=== PATIENT | female | born 1990 | race Caucasian/White ===

== ENCOUNTER 2017-03-25 16:25 | Inpatient (IN) | payer BC, OTHER, SELFPAY ==
[2017-03-25] MEDS ORDERED: Lidocaine 1% 30 ML SDV INJECT PRN (16:38)
[2017-03-25] MEDS ORDERED: Sodium Chloride 0.9% 10 ML Syringe FLUSH PRN (16:38)
[2017-03-25] MEDS ORDERED: Nalbuphine 10 MG/1 ML Vial IVPUSH PRN (16:38)
[2017-03-25] MEDS ORDERED: Methylergonovine 0.2 MG/1 ML Amp IM PRN (16:38)
[2017-03-25] MEDS ORDERED: Oxytocin 10 Units/1 ML SDV IM ONE (16:38)
[2017-03-25] MEDS ORDERED: fentaNYL 100 MCG/2 ML SDV IVPUSH PRN (16:38)
[2017-03-25] MEDS ORDERED: Lactated Ringers 500 ML IV ONE (16:38)
[2017-03-25] MEDS ORDERED: Misoprostol 400 MCG (4 X 100 MCG TAB) RECTAL PRN (16:38)
[2017-03-25] MEDS ORDERED: Carboprost Tromethamine 250 MCG/1 ML Amp IM PRN (16:38)
[2017-03-25] MEDS ORDERED: Ondansetron 4 MG/2 ML SDV IV PRN ×2 (16:38→19:57)
[2017-03-25] MEDS ORDERED: Acetaminophen 325 MG Tab PO PRN (16:38)
[2017-03-25] MEDS ORDERED: Misoprostol 25 MCG (1/4 of 100 MCG) Tab VAG PRN (16:42)
[2017-03-25] MEDS ORDERED: Oxytocin/Normal Saline 30 UNIT/500 ML BAG IV SCH (16:45)
[2017-03-25] MEDS ORDERED: Labetalol 20 MG/4 ML Syringe IV PRN (16:46)
--- NOTE | 2017-03-25 16:55 | PCM.LDHP ---
L&D History of Present Illness - General Date of Service: 03/25/17 Admit Problem/Dx: Patient Status Order with Admit Dx/Problem 03/25/17 16:39 Patient Status [ADT] Routine Admission Diagnosis/Problem Admission Diagnosis/Problem High risk Source of Information: Patient History Limitations: Reports: No Limitations - History of Present Illness Introduction:: 26-year-old at 39w0d presented to L&D as a transfer from the clinic for gestational hypertension. Her BP in the clinic was 160/115 and 150/98. She denies any headaches, vision changes or swelling. Baby has been active. No vaginal bleeding or leaking of fluid. - Related Data Allergies/Adverse Reactions: Allergies Allergy/AdvReac Type Severity Reaction Status Date / Time Penicillins Allergy Hives Verified 03/25/17 16:36 Home Medications: Home Meds PNV95/Ferrous Fumarate/FA [ Tablet] 1 tab PO DAILY 03/25/17 [History] Past Medical History Cardiovascular History: Reports: Hypertension (Was on meds for a while, none for a while) Social & Family History - Family History Cardiac: Reports: CAD (Paternal grandfather) OBGYN: Reports: Other (See Below) (sister with preeclampsia) H&P Review of Systems - Review of Systems: Review Of Systems: See Below General: Reports: No Symptoms HEENT: Reports: No Symptoms Pulmonary: Reports: No Symptoms Cardiovascular: Reports: No Symptoms Gastrointestinal: Reports: No Symptoms Genitourinary: Reports: No Symptoms Musculoskeletal: Reports: No Symptoms Skin: Reports: No Symptoms L&D Exam - Exam Exam: See Below - OB Specific Fundal Height In cm: 39 Movement: Active Heart Tones: Present Heart Tones per Min: 135 (Doppler in clinic) Presentation: Vertex - Damico Score Damico Score Cervix Position: Posterior Damico Score Consistency: Soft Damico Score Effacement: 31-50% Damico Score Dilation: 1-2 cm Damico Score 's Station: -2 Damico Score Total: 5 - Exam General: Alert, Oriented HEENT: Conjunctiva Clear, Posterior Pharynx Clear, Pupils Equal Lungs: Clear to Auscultation, Normal Respiratory Effort Cardiovascular: Regular Rate, Regular Rhythm. No: Systolic Murmur, Diastolic Murmur Genitourinary: Normal external exam Back Exam: Normal Inspection Extremities: No Pedal Edema (Trace to lower extremities bilaterally) Skin: Warm, Dry, Intact - Problem List (1) care in third trimester SNOMED Code(s): 542435756, 04080627, [id number], [id number], [id number] ICD Code: Z34.93 - ENCNTR FOR SUPRVSN OF NORMAL PREG, UNSP, THIRD TRIMESTER Status: Acute Current Visit: Yes (2) Gestational hypertension SNOMED Code(s): 45750783 ICD Code: O13.9 - GESTATIONAL HTN W/O SIGNIFICANT PROTEINURIA, UNSP TRIMESTER Status: Acute Current Visit: Yes Problem List Initiated/Reviewed/Updated: Yes Orders Last 24hrs: Active Orders 24 hr Category Date Time Status Patient Status [ADT] Routine ADT 03/25/17 16:39 Ordered Communication Order [RC] ASDIRECTED Care 03/25/17 16:39 Ordered Communication Order [RC] ASDIRECTED Care 03/25/17 16:42 Ordered Communication Order [RC] ASDIRECTED Care 03/25/17 16:42 Ordered Communication Order [RC] ASDIRECTED Care 03/25/17 16:42 Ordered Communication Order [RC] ASDIRECTED Care 03/25/17 16:42 Ordered Communication Order [RC] ASDIRECTED Care 03/25/17 16:42 Ordered Heart Tones [RC] PER UNIT ROUTINE Care 03/25/17 16:39 Ordered Monitoring [RC] PER UNIT ROUTINE Care 03/25/17 16:42 Ordered Notify Provider Vital Signs OB [RC] ASDIRECTED Care 03/25/17 16:39 Ordered Notify Provider [RC] PRN Care 03/25/17 16:39 Ordered Notify Provider [RC] PRN Care 03/25/17 16:42 Ordered Notify Provider [RC] PRN Care 03/25/17 16:42 Ordered Notify Provider [RC] STAT Care 03/25/17 16:42 Ordered Peripheral IV Care [RC] . DIRECTED Care 03/25/17 16:43 Ordered Pump Management, Intrathecal [RC] ASDIRECTED Care 03/25/17 16:38 Ordered Up ad Alexsandra [RC] ASDIRECTED Care 03/25/17 16:39 Ordered Vaginal Exam [RC] PRN Care 03/25/17 16:42 Ordered Vital Signs [RC] PER UNIT ROUTINE Care 03/25/17 16:39 Ordered Clear Liquid Diet [DIET] Diet 03/25/17 Dinner Ordered ALANINE AMINOTRANSFERASE,ALT [CHEM] Stat Lab 03/25/17 16:41 Ordered ASPARTATE AMNIOTRANSFERASE,AST [CHEM] Stat Lab 03/25/17 16:41 Ordered BLOOD UREA NITROGEN,BUN [CHEM] Stat Lab 03/25/17 16:41 Ordered CBC WITH AUTO DIFF [HEME] Stat Lab 03/25/17 16:41 Ordered LACTATE DEHYDROGENASE,LDH [CHEM] Stat Lab 03/25/17 16:41 Ordered PROTEIN/CREATININE RATIO URINE Stat Lab 03/25/17 16:42 Ordered URIC ACID [CHEM] Stat Lab 03/25/17 16:41 Ordered Acetaminophen [Tylenol] Med 03/25/17 16:38 Ordered 650 mg PO Q4H PRN Carboprost Tromethamine [Hemabate DS] Med 03/25/17 16:38 Ordered 250 mcg IM ASDIRECTED PRN Labetalol [Normodyne] Med 03/25/17 17:30 Ordered 100 mg PO TID Labetalol [Normodyne] Med 03/25/17 16:46 Ordered 20 mg IV Q6HR PRN Lactated Ringers @ 125 MLS/HR(1000ml) Med 03/25/17 16:45 Ordered Lactated Ringers [Ringers, Lactated] 1,000 ml IV ASDIRECTED Lactated Ringers [Ringers, Lactated] 500 ml Med 03/25/17 16:38 Ordered IV .BOLUS Lidocaine 1% [Xylocaine-MPF 1%] Med 03/25/17 16:38 Ordered 10 ml INJECT ASDIRECTED PRN Methylergonovine [Methergine] Med 03/25/17 16:38 Ordered 0.2 mg IM ASDIRECTED PRN Misoprostol [Cytotec] Med 03/25/17 16:42 Ordered 25 mcg VAG Q4H PRN Misoprostol [Cytotec] Med 03/25/17 16:38 Ordered 800 mcg RECTAL ASDIRECTED PRN Nalbuphine [Nubain] Med 03/25/17 16:38 Ordered 10 mg IVPUSH Q3H PRN Ondansetron [Zofran] Med 03/25/17 16:38 Ordered 4 mg IV Q4H PRN Oxytocin 30 Units in NS @ 2 MUNITS/MIN(500ml) Med 03/25/17 16:45 Ordered Oxytocin/Normal Saline [Pitocin in NS 30 UNIT/500 ML] 30 unit in 500 ml IV TITRATE Sodium Chloride 0.9% [Saline Flush] Med 03/25/17 16:38 Ordered 10 ml FLUSH ASDIRECTED PRN fentaNYL [Sublimaze] Med 03/25/17 16:38 Ordered 50 mcg IVPUSH Q1H PRN PIH Panel [OM.PC] Stat Oth 03/25/17 16:41 Ordered Peripheral IV Insertion Adult [OM.PC] Urgent Oth 03/25/17 16:42 Ordered Saline Lock Insert [OM.PC] Routine Oth 03/25/17 16:39 Ordered Resuscitation Status Routine Resus Stat 03/25/17 16:38 Ordered Medication Orders Acetaminophen (Tylenol) 650 mg PO Q4H PRN PRN Reason: Pain (Mild 1-3) and fever Carboprost Tromethamine (Hemabate Ds) 250 mcg IM ASDIRECTED PRN PRN Reason: HEMORRHAGE Fentanyl (Sublimaze) 50 mcg IVPUSH Q1H PRN PRN Reason: Pain (moderate 4-6) Lactated Ringer's (Ringers, Lactated) 500 mls @ 999 mls/hr IV .BOLUS ONE Stop: 03/25/17 17:08 Lactated Ringer's (Ringers, Lactated) 1,000 mls @ 125 mls/hr IV ASDIRECTED VICENTE Oxytocin/Sodium Chloride (Pitocin In Ns 30 Unit/500 Ml) 30 unit in 500 mls @ 2 mls/hr IV TITRATE VICENTE; 2 MUNITS/MIN PRN Reason: Protocol Labetalol HCl (Normodyne) 20 mg IV Q6HR PRN; Protocol PRN Reason: Hypertension Labetalol HCl (Normodyne) 100 mg PO TID VICENTE Lidocaine HCl (Xylocaine-Mpf 1%) 10 ml INJECT ASDIRECTED PRN PRN Reason: Perineal Repair Methylergonovine Maleate (Methergine) 0.2 mg IM ASDIRECTED PRN PRN Reason: Hemorrhage Misoprostol (Cytotec) 800 mcg RECTAL ASDIRECTED PRN PRN Reason: Hemorrhage Misoprostol (Cytotec) 25 mcg VAG Q4H PRN PRN Reason: cervical ripening Stop: 03/26/17 20:43 Nalbuphine HCl (Nubain) 10 mg IVPUSH Q3H PRN PRN Reason: Pain (moderate 4-6) Ondansetron HCl (Zofran) 4 mg IV Q4H PRN PRN Reason: Nausea/Vomiting Sodium Chloride (Saline Flush) 10 ml FLUSH ASDIRECTED PRN PRN Reason: Keep Vein Open Assessment/Plan Comment:: 1. Admit to L&D. Initiate routine intrapartum orders 2. Will obtain PIH labs to assess for preeclampsia. If labs are abnormal, we will need to start magnesium. We will also need to start magnesium if blood pressure remain in the severe range. Labetolol ordered for BP control. 3. Plan for Cytotec induction. Will add pitocin and/or AROM for augmentation when able. 4. Patient advised that we will try for a vaginal delivery but she is at increased risk for cesrean section as her cervix is not very favorable. Patient understands these risks, and all questions were answered. Miguelina Álvarez MD
[2017-03-25] MEDS: Lactated Ringers 1,000 ML IV SCH ×3 (16:56→21:08)
[2017-03-25] MEDS ORDERED: Labetalol 100 MG Tab PO SCH (17:30)
[2017-03-25] MEDS ORDERED: Citric Acid/Sodium Citrate Solution 30 ML Cup PO ONE (17:55)
[2017-03-25] MEDS ORDERED: ceFAZolin 2 GM in Premix Bag 1 BAG IV ONE (17:55)
--- NOTE | 2017-03-25 18:02 | PCM.SN ---
- Free Text/Narrative Note: 03/25/[id number] Called by Junie Woodruff RN to evaluate monitoring prior to induction of labor. heart tracings have been consistently in the 160s-170s with minimal variability most of the time, making it unsafe to proceed with induction. I explained this to the patient, and she agreed to proceed with delivery. Patient voices her understanding and agrees to proceed. The risks of surgery, including but not limited to infection, blood loss and damage to surrounding structures, were reviewed. Consents were signed. Patient was also noted to have proteinuria, giving her a diagnosis of preeclampsia. Will start magnesium after delivery. Patient has received 2 doses of labetalol for hypertension. Will proceed to the OR [facility]. Miguelina Álvarez MD
--- NOTE | 2017-03-25 18:04 | PCM.PRNOTE ---
- Free Text/Narrative Note: Section Operative Report Date of Surgery: 03/25/17 Surgeon: Miguelina Álvarez MD Shoe Folder: Jethro Voss MD Pre-Operative Diagnosis: Pre-elampsia Non-reassuring status Post-Operative Diagnosis: Same Procedure Performed: Primary low transverse section Anesthesia: Spinal EBL: 550 mL IVF: 1800 mL Drains: Barboza catheter with 250 mL of urine output Specimens: None Complications: None apparent Findings: Normal uterus, tubes, and ovaries. Indication and Consent: Upon arrival to the floor for induction for preeclampsia, heart tracing was not reassuring for induction of labor. section was recommended to the patient for wellbeing. The patient understood that the risks of section include, but are not limited to, visceral or vascular injury, infection, blood loss and need for blood transfusion, prolonged hospitalization , and reoperation. The patient stated understanding and desired to proceed. All questions were answered. Procedure in Detail: The patient was taken to the operating room. Barboza catheter and pneumoboots were placed. She was then prepped and draped in routine fashion in dorsal supine position with a left young tilt. Two grams of cefazolin (Ancef) were given for infection prophylaxis. Spinal anesthesia was administered. SROM occured a few minutes prior to surgery. Moderate clear fluid was noted. A Pfannenstiel skin incision was made with a scalpel and carried down to the fascia. The fascia was incised and extended laterally. The rectus musculature was in the midline down to the level of the pubic symphysis. The peritoneum was found to be free of adherent bowel or bladder tissue and entered bluntly. The peritoneal opening was then extended superiorly and inferiorly to the bladder reflection with good visualization of the bladder. The Rito retractor was placed. Brief intraabdominal survey revealed scant, clear peritoneal fluid and thinned-out lower uterine segment. The lower uterine segment was incised with a scalpel. The amniotic sac was ruptured with an Allis clamp and clear fluid was noted. The uterine incision was extended bluntly with lateral and upward traction. The fetus was in vertex position. The head was elevated out of the maternal pelvis with special attention paid to avoid using the uterine incision as a fulcrum. Gentle fundal pressure was applied once the head was brought into the incision. A Kiwi vacuum was used to assist the head out of the uterine incision. The was delivered with minimal difficulty. Bulb suctioning of the 's nose and mouth was performed on the operative field. The cord was clamped and cut in standard fashion, and the infant was handed over to the awaiting nursery staff. IV oxytocin was initiated to facilitate uterine contractions. The placenta was delivered intact with manual message of the uterine fundus along with gentle cord traction. The uterus was then exteriorized. The inside of the uterus was gently wiped with a lap sponge to assure complete removal of remaining products of conception. The uterine incision was closed with 0 - Vicryl suture in a running locked fashion. A second imbricating layer of 0- Vicryl was also placed. The incision was inspected and hemostasis achieved. The ovaries and tubes were visualized and found to be normal. The uterus, tubes, and ovaries were returned to the abdominal cavity. The blood clots and fluid were wiped out of the abdomen and pelvis with moist laparotomy sponges. The uterine incision was re-inspected along with all other incised surfaces and good hemostasis was confirmed. The Rito retractor was removed. The peritoneus was then closed using 2-0 Vicyrl. The fascia was then closed with 2-0 looped PDS suture with care not to include any underlying abdominal contents. The sub-cutaneous layer was reapproximated with plain suture. The skin was closed with 3-0 suture on a Colin needle in a subcuticular fashion. Dressing was applied. Sponge and instrument counts were reported as correct times two. Pt tolerated procedure well and was taken to PACU in stable condition. Miguelina Álvarez MD
[2017-03-25] MEDS ORDERED: Midazolam 1 MG/ML 2 ML SDV ONE (18:13)
[2017-03-25] MEDS ORDERED: Ketorolac 30 MG/ML SDV ONE (18:14)
[2017-03-25] MEDS ORDERED: Ondansetron 4 MG/2 ML SDV ONE (18:14)
[2017-03-25] MEDS ORDERED: Morphine PF 1 MG/ML Amp ONE (18:14)
[2017-03-25] MEDS ORDERED: Oxytocin/Normal Saline 60 UNIT/1,000 ML BAG ONE (18:22)
[2017-03-25] MEDS ORDERED: Naloxone 2 MG/2 ML Syringe IVPUSH PRN (19:57)
[2017-03-25] MEDS ORDERED: Acetaminophen/oxyCODONE 325-5 MG Tab PO PRN (19:57)
[2017-03-25] MEDS ORDERED: ePHEDrine 50 MG/ML SDV IVPUSH PRN (19:57)
[2017-03-25] MEDS ORDERED: Ketorolac 30 MG/ML SDV IVPUSH SCH (20:00)
--- NOTE | 2017-03-25 20:00 | PCM.PREANE ---
Preanesthetic Assessment - Procedure Proposed Procedure: Section - Anesthesia/Transfusion/Family Hx Anesthesia History: No Prior Anesthesia Family History of Anesthesia Reaction: No Transfusion History: No Prior Transfusion(s) Intubation History: Unknown - Review of Systems General: No Symptoms Pulmonary: No Symptoms Cardiovascular: No Symptoms Gastrointestinal: No Symptoms Neurological: No Symptoms Other: Reports: None - Physical Assessment NPO Status Date: 03/25/17 NPO Status Time: 18:00 Pulse: 92 O2 Sat by Pulse Oximetry: 100 Respiratory Rate: 16 Blood Pressure: 166/101 Temperature: 97.6 F Vital Signs: Last Vital Signs Temp 99.1 F 03/25/17 17:05 Pulse 91 03/25/17 18:00 Resp 16 03/25/17 18:00 BP 160/98 H 03/25/17 18:00 Pulse Ox Height: 1.68 m Weight: 109.316 kg ASA Class: 2E Mental Status: Alert & Oriented x3 Airway Class: Mallampati = 2 Dentition: Reports: Normal Dentition ROM/Head Extension: Full Lungs: Clear to Auscultation, Normal Respiratory Effort Cardiovascular: Regular Rate, Regular Rhythm - Lab Values: Laboratory Last Values WBC 12.6 10^3/uL (5.0-10.0) H 03/25/17 16:55 RBC 4.23 10^6/uL (4.2-5.4) 03/25/17 16:55 Hgb 12.2 g/dL (12.0-16.0) 03/25/17 16:55 Hct 36.3 % (37.0-47.0) L 03/25/17 16:55 MCV 85.8 fL (80-100) 03/25/17 16:55 MCH 28.8 pg (27.0-34.0) 03/25/17 16:55 MCHC 33.6 g/dL (33.0-35.0) 03/25/17 16:55 Plt Count 280 10^3/uL (150-450) 03/25/17 16:55 Neut % (Auto) 73.7 % (42.2-75.2) 03/25/17 16:55 Lymph % (Auto) 16.8 % (20.5-50.1) L 03/25/17 16:55 [place] % (Auto) 9.2 % (2-8) H 03/25/17 16:55 Eos % (Auto) 0.2 % (1.0-3.0) L 03/25/17 16:55 Baso % (Auto) 0.1 % (0.0-1.0) 03/25/17 16:55 BUN 16 mg/dL (7-18) 03/25/17 16:55 Creatinine 1.0 mg/dL (0.6-1.3) 03/25/17 16:55 Est Cr Clr Drug Dosing TNP 03/25/17 16:55 Estimated GFR (MDRD) > 60 03/25/17 16:55 Uric Acid 5.6 mg/dL (2.6-7.2) 03/25/17 16:55 AST 18 IU/L (10-42) 03/25/17 16:55 ALT 13 IU/L (10-60) 03/25/17 16:55 Lactate Dehydrogenase 119 IU/L (91-180) 03/25/17 16:55 Urine Color Yellow (YELLOW) 03/25/17 17:10 Urine Appearance Slightly cloudy (CLEAR) 03/25/17 17:10 Urine pH 5.5 (5.0-9.0) 03/25/17 17:10 Ur Specific [place] 1.025 (1.005-1.030) 03/25/17 17:10 Urine Protein 100 (NEGATIVE) H 03/25/17 17:10 Urine Glucose (UA) Negative (NEGATIVE) 03/25/17 17:10 Urine Ketones Negative (NEGATIVE) 03/25/17 17:10 Urine Occult Blood Negative (NEGATIVE) 03/25/17 17:10 Urine Nitrite Negative (NEGATIVE) 03/25/17 17:10 Urine Bilirubin Negative (NEGATIVE) 03/25/17 17:10 Urine Urobilinogen 0.2 mg/dL (0.2-1.0) 03/25/17 17:10 Ur Leukocyte Esterase Negative (NEGATIVE) 03/25/17 17:10 Ur Random Creatinine 212 mg/dL 03/25/17 17:10 U Random Total Protein 68 mg/dL (0.00-9.9) H 03/25/17 17:10 Protein/Creatinin Ratio 0.32 03/25/17 17:10 Blood Type A POSITIVE 03/25/17 16:55 Gel Antibody Screen Negative 03/25/17 16:55 - Allergies Allergies/Adverse Reactions: Allergies Allergy/AdvReac Type Severity Reaction Status Date / Time Penicillins Allergy Hives Verified 03/25/17 16:36 - Blood Blood Available: No Product(s) Available: None - Anesthesia Plan Pre-Op Medication Ordered: None - Acknowledgements Anesthesia Type Planned: Spinal Pt an Appropriate Candidate for the Planned Anesthesia: Yes Alternatives and Risks of Anesthesia Discussed w Pt/Guardian: Yes Pt/Guardian Understands and Agrees with Anesthesia Plan: Yes Additional Comments: R/B of spinal vs general anesthesia is discussed with patient. Plan A is for spinal and Plan B is for General anesthesia patient agreed and signed consent. 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 Smoking Status *Q: Never Smoker Second Hand Smoke Exposure: No Recreational Drug Use History: No - HOME MEDS Home Medications: Home Meds PNV95/Ferrous Fumarate/FA [ Tablet] 1 tab PO DAILY 03/25/17 [History] - CURRENT (IN HOUSE) MEDS Current Meds: Current Medications Acetaminophen (Tylenol) 650 mg PO Q4H PRN PRN Reason: Pain (Mild 1-3) and fever Carboprost Tromethamine (Hemabate Ds) 250 mcg IM ASDIRECTED PRN PRN Reason: HEMORRHAGE Oxytocin/Sodium Chloride (Pitocin In Ns 30 Unit/500 Ml) 30 unit in 500 mls @ 2 mls/hr IV TITRATE VICENTE; 2 MUNITS/MIN PRN Reason: Protocol Last Admin: 03/25/17 19:45 Dose: 2 munits/min, 125 mls/hr Labetalol HCl (Normodyne) 20 mg IV Q6HR PRN; Protocol PRN Reason: Hypertension Last Admin: 03/25/17 17:16 Dose: 20 mg Labetalol HCl (Normodyne) 100 mg PO TID VICENTE Last Admin: 03/25/17 17:15 Dose: 100 mg Methylergonovine Maleate (Methergine) 0.2 mg IM ASDIRECTED PRN PRN Reason: Hemorrhage Misoprostol (Cytotec) 800 mcg RECTAL ASDIRECTED PRN PRN Reason: Hemorrhage Misoprostol (Cytotec) 25 mcg VAG Q4H PRN PRN Reason: cervical ripening Stop: 03/26/17 20:43 Sodium Chloride (Saline Flush) 10 ml FLUSH ASDIRECTED PRN PRN Reason: Keep Vein Open Discontinued Medications Citric Acid/Sodium Citrate (Bicitra Solution) 30 ml PO ONETIME ONE Stop: 03/25/17 17:56 Last Admin: 03/25/17 18:18 Dose: 30 ml Fentanyl (Sublimaze) 50 mcg IVPUSH Q1H PRN PRN Reason: Pain (moderate 4-6) Lactated Ringer's (Ringers, Lactated) 500 mls @ 999 mls/hr IV .BOLUS ONE Stop: 03/25/17 17:08 Lactated Ringer's (Ringers, Lactated) 1,000 mls @ 125 mls/hr IV ASDIRECTED VICENTE Last Admin: 03/25/17 18:19 Dose: 125 mls/hr Cefazolin Sodium/Dextrose 2 gm (/ Premix) 50 mls @ 100 mls/hr IV ONETIME ONE Stop: 03/25/17 18:24 Last Admin: 03/25/17 18:30 Dose: 100 mls/hr Oxytocin/Sodium Chloride (Pitocin In Ns 30 Unit/500 Ml) Confirm Administered Dose 60 unit in 1,000 mls @ as directed .ROUTE .STK-MED ONE Stop: 03/25/17 18:23 Ketorolac Tromethamine (Toradol) Confirm Administered Dose 30 mg .ROUTE .STK- MED ONE Stop: 03/25/17 18:15 Lidocaine HCl (Xylocaine-Mpf 1%) 10 ml INJECT ASDIRECTED PRN PRN Reason: Perineal Repair Midazolam HCl (Versed 1 Mg/Ml) Confirm Administered Dose 2 mg .ROUTE .STK-MED ONE Stop: 03/25/17 18:14 Morphine Sulfate (Duramorph Pf) Confirm Administered Dose 1 mg .ROUTE .STK-MED ONE Stop: 03/25/17 18:15 Nalbuphine HCl (Nubain) 10 mg IVPUSH Q3H PRN PRN Reason: Pain (moderate 4-6) Ondansetron HCl (Zofran) 4 mg IV Q4H PRN PRN Reason: Nausea/Vomiting Ondansetron HCl (Zofran) Confirm Administered Dose 4 mg .ROUTE .STK-MED ONE Stop: 03/25/17 18:15 Oxytocin (Pitocin) 10 unit IM ONETIME ONE Stop: 03/25/17 16:39
--- NOTE | 2017-03-25 20:11 | PCM.DEL ---
L & D Note - General Info Date of Service: 03/25/17 Mother's Due Date: 04/01/17 - Delivery Note Delivery Outcome: Livebirth Infant Delivery Method: Primary Infant Delivery Mode: Vacuum Extraction Presentation: Vertex Nuchal Cord: None Anesthesia Type: Spinal Placenta: Intact, Manual Removal Cord: 3 Vessels Estimated Blood Loss: 550 Resuscitation Needed: No Score 1 min: 9 Score 5 min: 9 Delivery Comments (Free Text/Narrative):: Please see procedure note for details - Patient Data Vitals - Most Recent: Last Vital Signs Temp 36.4 C 03/25/17 20:00 Pulse 92 03/25/17 20:00 Resp 16 03/25/17 20:00 BP 166/101 H 03/25/17 20:00 Pulse Ox 100 03/25/17 20:00 Weight - Most Recent: 109.316 kg I&O - Last 24 Hours: Intake & Output 03/25/17 03/25/17 03/25/17 06:59 14:59 22:59 Intake Total 1000 Balance 1000 Lab Results Last 24 Hours: Laboratory Results - last 24 hr 03/25/17 03/25/17 03/25/17 Range/Units 16:55 16:55 16:55 WBC 12.6 H (5.0-10.0) 10^3/uL RBC 4.23 (4.2-5.4) 10^6/uL Hgb 12.2 (12.0-16.0) g/dL Hct 36.3 L (37.0-47.0) % MCV 85.8 (80-100) fL MCH 28.8 (27.0-34.0) pg MCHC 33.6 (33.0-35.0) g/dL Plt Count 280 (150-450) 10^3/uL Neut % (Auto) 73.7 (42.2-75.2) % Lymph % (Auto) 16.8 L (20.5-50.1) % Leslie % (Auto) 9.2 H (2-8) % Eos % (Auto) 0.2 L (1.0-3.0) % Baso % (Auto) 0.1 (0.0-1.0) % BUN 16 (7-18) mg/dL Creatinine 1.0 (0.6-1.3) mg/dL Est Cr Clr Drug Dosing TNP Estimated GFR (MDRD) > 60 Uric Acid 5.6 (2.6-7.2) mg/dL AST 18 (10-42) IU/L ALT 13 (10-60) IU/L Lactate Dehydrogenase 119 (91-180) IU/L Urine Color (YELLOW) Urine Appearance (CLEAR) Urine pH (5.0-9.0) Ur Specific Harlan (1.005-1.030) Urine Protein (NEGATIVE) Urine Glucose (UA) (NEGATIVE) Urine Ketones (NEGATIVE) Urine Occult Blood (NEGATIVE) Urine Nitrite (NEGATIVE) Urine Bilirubin (NEGATIVE) Urine Urobilinogen (0.2-1.0) mg/dL Ur Leukocyte Esterase (NEGATIVE) Ur Random Creatinine mg/dL U Random Total Protein (0.00-9.9) mg/dL Protein/Creatinin Ratio Blood Type Gel Antibody Screen 03/25/17 03/25/17 03/25/17 Range/Units 16:55 17:10 17:10 WBC (5.0-10.0) 10^3/uL RBC (4.2-5.4) 10^6/uL Hgb (12.0-16.0) g/dL Hct (37.0-47.0) % MCV (80-100) fL MCH (27.0-34.0) pg MCHC (33.0-35.0) g/dL Plt Count (150-450) 10^3/uL Neut % (Auto) (42.2-75.2) % Lymph % (Auto) (20.5-50.1) % Leslie % (Auto) (2-8) % Eos % (Auto) (1.0-3.0) % Baso % (Auto) (0.0-1.0) % BUN (7-18) mg/dL Creatinine (0.6-1.3) mg/dL Est Cr Clr Drug Dosing Estimated GFR (MDRD) Uric Acid (2.6-7.2) mg/dL AST (10-42) IU/L ALT (10-60) IU/L Lactate Dehydrogenase (91-180) IU/L Urine Color Yellow (YELLOW) Urine Appearance Slightly cloudy (CLEAR) Urine pH 5.5 (5.0-9.0) Ur Specific Harlan 1.025 (1.005-1.030) Urine Protein 100 H (NEGATIVE) Urine Glucose (UA) Negative (NEGATIVE) Urine Ketones Negative (NEGATIVE) Urine Occult Blood Negative (NEGATIVE) Urine Nitrite Negative (NEGATIVE) Urine Bilirubin Negative (NEGATIVE) Urine Urobilinogen 0.2 (0.2-1.0) mg/dL Ur Leukocyte Esterase Negative (NEGATIVE) Ur Random Creatinine 212 mg/dL U Random Total Protein 68 H (0.00-9.9) mg/dL Protein/Creatinin Ratio 0.32 Blood Type A POSITIVE Gel Antibody Screen Negative Med Orders - Current: Current Medications Acetaminophen (Tylenol) 650 mg PO Q4H PRN PRN Reason: Pain (Mild 1-3) and fever Carboprost Tromethamine (Hemabate Ds) 250 mcg IM ASDIRECTED PRN PRN Reason: HEMORRHAGE Diphenhydramine HCl (Benadryl) 25 mg IVPUSH Q6H PRN PRN Reason: Itching or Nausea Docusate Sodium (Colace) 100 mg PO Q12H PRN PRN Reason: Constipation Ephedrine Sulfate (Ephedrine Sulfate) 5 mg IVPUSH SEECOMMENT PRN PRN Reason: Other Oxytocin/Sodium Chloride (Pitocin In Ns 30 Unit/500 Ml) 30 unit in 500 mls @ 2 mls/hr IV TITRATE VICENTE; 2 MUNITS/MIN PRN Reason: Protocol Last Admin: 03/25/17 19:45 Dose: 2 munits/min, 125 mls/hr Lactated Ringer's (Ringers, Lactated) 1,000 mls @ 125 mls/hr IV ASDIRECTED VICENTE Magnesium Sulfate 4 gm/ Premix 100 mls @ 300 mls/hr IV .BOLUS ONE Stop: 03/25/17 20:19 Magnesium Sulfate (Magnesium Sulfate 20 Gm In Water 500 Ml) 500 mls @ 50 mls/ hr IV ASDIRECTED VICENTE Ibuprofen (Motrin) 800 mg PO Q8H PRN PRN Reason: mild pain or fever Ketorolac Tromethamine (Toradol) 15 mg IVPUSH Q6H VICENTE Stop: 03/26/17 08:01 Labetalol HCl (Normodyne) 20 mg IV Q6HR PRN; Protocol PRN Reason: Hypertension Last Admin: 03/25/17 17:16 Dose: 20 mg Labetalol HCl (Normodyne) 100 mg PO TID VICENTE Last Admin: 03/25/17 17:15 Dose: 100 mg Methylergonovine Maleate (Methergine) 0.2 mg IM ASDIRECTED PRN PRN Reason: Hemorrhage Misoprostol (Cytotec) 800 mcg RECTAL ASDIRECTED PRN PRN Reason: Hemorrhage Misoprostol (Cytotec) 25 mcg VAG Q4H PRN PRN Reason: cervical ripening Stop: 03/26/17 20:43 Naloxone HCl (Narcan) 0.1 mg IVPUSH SEECOMMENT PRN PRN Reason: Respiratory Depression Ondansetron HCl (Zofran) 4 mg IV Q4H PRN PRN Reason: Nausea/Vomiting Oxycodone/Acetaminophen (Percocet 325-5 Mg) 1 tab PO Q4H PRN PRN Reason: Pain (moderate 4-6) Oxycodone/Acetaminophen (Percocet 325-5 Mg) 2 tab PO Q4H PRN PRN Reason: Pain (moderate 4-6) Simethicone (Simethicone) 80 mg PO Q4H PRN PRN Reason: Gas Sodium Chloride (Saline Flush) 10 ml FLUSH ASDIRECTED PRN PRN Reason: Keep Vein Open Discontinued Medications Citric Acid/Sodium Citrate (Bicitra Solution) 30 ml PO ONETIME ONE Stop: 03/25/17 17:56 Last Admin: 03/25/17 18:18 Dose: 30 ml Fentanyl (Sublimaze) 50 mcg IVPUSH Q1H PRN PRN Reason: Pain (moderate 4-6) Lactated Ringer's (Ringers, Lactated) 500 mls @ 999 mls/hr IV .BOLUS ONE Stop: 03/25/17 17:08 Lactated Ringer's (Ringers, Lactated) 1,000 mls @ 125 mls/hr IV ASDIRECTED [facility] Last Admin: 03/25/17 18:19 Dose: 125 mls/hr Cefazolin Sodium/Dextrose 2 gm (/ Premix) 50 mls @ 100 mls/hr IV ONETIME ONE Stop: 03/25/17 18:24 Last Admin: 03/25/17 18:30 Dose: 100 mls/hr Oxytocin/Sodium Chloride (Pitocin In Ns 30 Unit/500 Ml) Confirm Administered Dose 60 unit in 1,000 mls @ as directed .ROUTE .STK-MED ONE Stop: 03/25/17 18:23 Ketorolac Tromethamine (Toradol) Confirm Administered Dose 30 mg .ROUTE .STK- MED ONE Stop: 03/25/17 18:15 Lidocaine HCl (Xylocaine-Mpf 1%) 10 ml INJECT ASDIRECTED PRN PRN Reason: Perineal Repair Midazolam HCl (Versed 1 Mg/Ml) Confirm Administered Dose 2 mg .ROUTE .STK-MED ONE Stop: 03/25/17 18:14 Morphine Sulfate (Duramorph Pf) Confirm Administered Dose 1 mg .ROUTE .STK-MED ONE Stop: 03/25/17 18:15 Nalbuphine HCl (Nubain) 10 mg IVPUSH Q3H PRN PRN Reason: Pain (moderate 4-6) Ondansetron HCl (Zofran) 4 mg IV Q4H PRN PRN Reason: Nausea/Vomiting Ondansetron HCl (Zofran) Confirm Administered Dose 4 mg .ROUTE .STK-MED ONE Stop: 03/25/17 18:15 Oxytocin (Pitocin) 10 unit IM ONETIME ONE Stop: 03/25/17 16:39 - Problem List & Annotations (1) care in third trimester SNOMED Code(s): 809915181, 86894729, 01631464, 253522827, 765505978 Code(s): Z34.93 - ENCNTR FOR SUPRVSN OF NORMAL PREG, UNSP, THIRD TRIMESTER Status: Acute Current Visit: Yes (2) Preeclampsia SNOMED Code(s): 823095691 Code(s): O14.90 - UNSPECIFIED PRE-ECLAMPSIA, UNSPECIFIED TRIMESTER Status: Acute Current Visit: Yes (3) Status post delivery SNOMED Code(s): 145522072 Code(s): Z98.891 - HISTORY OF UTERINE SCAR FROM PREVIOUS SURGERY Status: Acute Current Visit: Yes - Problem List Review Problem List Initiated/Reviewed/Updated: Yes - My Orders Last 24 Hours: My Active Orders 03/25/17 16:38 Pump Management, Intrathecal [RC] ASDIRECTED Acetaminophen [Tylenol] 650 mg PO Q4H PRN Carboprost Tromethamine [Hemabate DS] 250 mcg IM ASDIRECTED PRN Methylergonovine [Methergine] 0.2 mg IM ASDIRECTED PRN Misoprostol [Cytotec] 800 mcg RECTAL ASDIRECTED PRN Sodium Chloride 0.9% [Saline Flush] 10 ml FLUSH ASDIRECTED PRN Resuscitation Status Routine 03/25/17 16:39 Patient Status [ADT] Routine Heart Tones [RC] PER UNIT ROUTINE Notify Provider Vital Signs OB [RC] ASDIRECTED Notify Provider [RC] PRN Up ad Alexsandra [RC] ASDIRECTED Vital Signs [RC] 00,04,08,12,16,20 Saline Lock Insert [OM.PC] Routine 03/25/17 16:41 PIH Panel [OM.PC] Stat 03/25/17 16:42 Communication Order [RC] ASDIRECTED Communication Order [RC] ASDIRECTED Communication Order [RC] ASDIRECTED Communication Order [RC] ASDIRECTED Notify Provider [RC] PRN Notify Provider [RC] PRN Notify Provider [RC] STAT Vaginal Exam [RC] PRN Misoprostol [Cytotec] 25 mcg VAG Q4H PRN Peripheral IV Insertion Adult [OM.PC] Urgent 03/25/17 16:43 Peripheral IV Care [RC] . DIRECTED 03/25/17 16:45 Oxytocin/Normal Saline [Pitocin in NS 30 UNIT/500 ML] 30 unit in 500 ml IV TITRATE 03/25/17 16:46 Labetalol [Normodyne] 20 mg IV Q6HR PRN 03/25/17 17:30 Labetalol [Normodyne] 100 mg PO TID 03/25/17 17:55 Procedure Site Prep Instruct [RC] ASDIRECTED RT Incentive Spirometry [RC] ASDIRECTED Schedule Procedure [COMM] Per Unit Routine 03/25/17 19:57 Antiembolic Devices [RC] PER UNIT ROUTINE Bedrest [RC] ASDIRECTED Communication Order [RC] PER UNIT ROUTINE Communication Order [RC] PER UNIT ROUTINE Communication Order [RC] Per Unit Routine Intake and Output [RC] Q8H Notify Provider Intake and Out [RC] ASDIRECTED RT Incentive Spirometry [RC] Q2HWA Urinary Catheter Removal [RC] Per Unit Routine Consult to Ip Paralegal [CONS] Routine Acetaminophen/oxyCODONE [Percocet 325-5 MG] 1 tab PO Q4H PRN Acetaminophen/oxyCODONE [Percocet 325-5 MG] 2 tab PO Q4H PRN Docusate Sodium [Colace] 100 mg PO Q12H PRN Ibuprofen [Motrin] 800 mg PO Q8H PRN Naloxone [Narcan] 0.1 mg IVPUSH SEECOMMENT PRN Ondansetron [Zofran] 4 mg IV Q4H PRN Simethicone 80 mg PO Q4H PRN diphenhydrAMINE [Benadryl] 25 mg IVPUSH Q6H PRN ePHEDrine [ePHEDrine Sulfate] 5 mg IVPUSH SEECOMMENT PRN Antiembolic Hose [OM.PC] Per Unit Routine Assess Lochia [WOMSER] Per Unit Routine Assess Uterine Involution [WOMSER] Per Unit Routine Breast Pump [WOMSER] Per Unit Routine Sequential Compression Device [OM.PC] Per Unit Routine 03/25/17 20:00 Oxygen Therapy [RC] PRN Ketorolac [Toradol] 15 mg IVPUSH Q6H Lactated Ringers @ 125 MLS/HR(1000ml) Lactated Ringers [Ringers, Lactated] 1, 000 ml IV ASDIRECTED Magnesium Sulfate/Water [Magnesium Sulfate 20 GM in Water 500 ML] 500 ml IV ASDIRECTED Magnesium Sulfate/Water [Magnesium Sulfate 4 GM in Water 100 ML] 4 gm Premix Bag 1 bag IV .BOLUS Deep Tendon Reflexes [WOMSER] Per Unit Routine Seizure Precautions [OM.PC] Per Unit Routine 03/25/17 20:02 Equipment to Bedside [RC] PRN Notify Provider Status Change [RC] ASDIRECTED 03/25/17 Breakfast Clear Liquid Diet [DIET] Nothing Per Oral Diet [DIET] 03/25/17 Dinner Nothing Per Oral Diet [DIET] 03/25/17 Lunch Nothing Per Oral Diet [DIET] Regular Diet [DIET] 03/26/17 05:00 MAGNESIUM [CHEM] Q8H 03/26/17 08:00 CBC W/O DIFF,HEMOGRAM [HEME] Routine 03/26/17 13:00 MAGNESIUM [CHEM] Q8H 03/26/17 21:00 MAGNESIUM [CHEM] Q8H 03/27/17 05:00 MAGNESIUM [CHEM] Q8H - Assessment Assessment:: 26-year-old, now , status post primary section for preeclampsia and non-reassuring heart tones - Plan Plan:: 1. Initiate routine postoperative cares 2. Initiate magnesium for preeclampsia. Will continue for 24 hours. Check magnesium level every 8 hours after initiation. 3. Labetalol 100 mg TID. Nursing advised to call if BP normal or low. 4. Mother plans to breastfeed 5. Anticipate discharge 03/28/17. Dr. Voss will see tomorrow. I will resume care on 03/27/17 Miguelina Álvarez MD
[2017-03-25] MEDS ORDERED: Calcium Gluconate 10% 1 GM/10 ML SDV IVPUSH ONE ×2 (21:00→21:45)
[2017-03-25] MEDS: Magnesium Sulfate/Water 4 GM in Premix Bag 1 BAG IV ONE (21:08)
[2017-03-25] MEDS: Magnesium Sulfate/Water 20 GM/500 ML BAG IV SCH (21:47)
[2017-03-25] MEDS: Simethicone 80 MG Tab.Chew PO PRN (21:51)
[2017-03-26] MEDS: Ketorolac 30 MG/ML SDV IVPUSH SCH ×3 (01:54→13:53)
[2017-03-26] MEDS: diphenhydrAMINE 50 MG/ML SDV IVPUSH PRN (04:02)
[2017-03-26] MEDS: Magnesium Sulfate/Water 4 GM in Premix Bag 1 BAG IV ONE (07:56)
[2017-03-26] MEDS: Prenatal Multivitamin with Calcium/Folic Acid/Iron Tab PO SCH (07:58)
[2017-03-26] MEDS: Docusate Sodium 100 MG Cap PO PRN (07:58)
[2017-03-26] MEDS: Simethicone 80 MG Tab.Chew PO PRN ×3 (07:58→20:06)
[2017-03-26] MEDS: Magnesium Sulfate/Water 20 GM/500 ML BAG IV SCH ×2 (08:05→17:50)
--- NOTE | 2017-03-26 09:48 | PCM.POSTAN ---
POST ANESTHESIA ASSESSMENT - MENTAL STATUS Mental Status: Alert, Oriented - VITAL SIGNS Pulse Rate: 82 SaO2: 99 Resp Rate: 16 Blood Pressure: 124/72 Temperature: 97.6 F - RESPIRATORY Respiratory Status: Respiratory Rate WNL, Airway Patent, O2 Saturation Stable - CARDIOVASCULAR CV Status: Pulse Rate WNL, Blood Pressure Stable - GASTROINTESTINAL GI Status: No Symptoms - PAIN Pain Score: 1 - POST OP HYDRATION Hydration Status: Adequate & Stable - OBSERVATIONS Free Text/Narrative:: Fully recovered from her spinal anesthesia about to ambulate. Pain, nausea and vomiting free. pleased with her anesthetic plan of care.
--- NOTE | 2017-03-26 12:06 | PN ---
DATE: 03/26/2017 SUBJECTIVE: The patient is doing well today. She denies any headache. She is currently on magnesium sulfate at 2 g/hour. She denies any respiratory depression or any visual symptoms. She has been up, ambulating this morning, but she does admit that she feels somewhat groggy from the magnesium sulfate as we would expect. She has been ambulating with the nurse at her side or with her at her side. She is tolerating regular diet this morning. Her baby also was doing very well this morning. OBJECTIVE: Her blood pressures are in the range of 118/74 and 123/64. Her postoperative hemoglobin this morning is 10.1. She is getting 2 g/hour of magnesium sulfate. She does have good urine output. She remains afebrile. Her serum magnesium level is 4.8 this morning. IMPRESSION: Stable course after section last evening for preeclampsia. Although, her serum Mag level is somewhat below the therapeutic range, we will not increase it because of her slight degree of grogginess and lethargy that she already has at this level. PLAN: We will continue with 2 g/hour of magnesium sulfate at the present time. It should be mentioned that her deep tendon reflexes are 1+/4 bilaterally and there is no ankle clonus. Also, her Homans sign was negative and no calf tenderness. As mentioned above, she will gradually increase her ambulation with or nurse at her side. We will begin iron sulfate 324 mg p.o. b.i.d. with food or meals because of her hemoglobin being 10.1. We will discontinue her magnesium sulfate 24 hours postoperatively or at approximately 1900 hours this evening. [facility] /[id number]
[2017-03-26] MEDS ORDERED: Ibuprofen 800 MG Tab PO PRN (16:00)
[2017-03-26] MEDS: Lactated Ringers 1,000 ML IV SCH (16:18)
[2017-03-26] MEDS: Ferrous Sulfate 325 MG Tab PO SCH (17:30)
[2017-03-26] MEDS: Acetaminophen/oxyCODONE 325-5 MG Tab PO PRN (20:06)
[2017-03-27] MEDS: Acetaminophen/oxyCODONE 325-5 MG Tab PO PRN ×6 (00:03→21:05)
[2017-03-27] MEDS: diphenhydrAMINE 50 MG/ML SDV IVPUSH PRN (00:03)
[2017-03-27] MEDS: Simethicone 80 MG Tab.Chew PO PRN ×3 (03:53→21:03)
[2017-03-27] MEDS: Ibuprofen 800 MG Tab PO PRN ×3 (03:53→20:15)
[2017-03-27] MEDS: Prenatal Multivitamin with Calcium/Folic Acid/Iron Tab PO SCH (08:21)
[2017-03-27] MEDS: Ferrous Sulfate 325 MG Tab PO SCH ×2 (08:21→17:14)
[2017-03-27] MEDS: Docusate Sodium 100 MG Cap PO PRN ×2 (08:21→21:03)
--- NOTE | 2017-03-27 11:33 | PCM.PNPP ---
- General Info Date of Service: 03/27/17 Subjective Update: 26-year-old, now , status post primary section for preeclampsia and non-reassuring heart tones. Magensium was stopped around 1900 yesterday. Patient has been feeling well since. Urine output has been adequate. Pain is well controlled. Blood pressures have been slightly high in with 130s-140s (occasional 150s) systolic and 90s diastolic. No headaches. Tolerating a general diet. Passing gas. No concerns per nursing or patient. Functional Status: Reports: Pain Controlled, Tolerating Diet, Ambulating, Urinating - Review of Systems General: Reports: No Symptoms HEENT: Reports: No Symptoms Pulmonary: Reports: No Symptoms Cardiovascular: Reports: No Symptoms Gastrointestinal: Reports: No Symptoms Genitourinary: Reports: No Symptoms Musculoskeletal: Reports: No Symptoms Skin: Reports: No Symptoms - General Info Date of Service: 03/27/17 - Patient Data Vital Signs - Most Recent: Last Vital Signs Temp 36.6 C 03/27/17 08:00 Pulse 78 03/27/17 08:00 Resp 16 03/27/17 08:00 BP 137/92 H 03/27/17 08:00 Pulse Ox 100 03/27/17 08:00 Weight - Most Recent: 109.316 kg I&O - Last 24 Hours: Intake & Output 03/26/17 03/27/17 03/27/17 22:59 06:59 14:59 Intake Total 3500 Output Total 2250 1550 Balance 1250 -1550 Lab Results - Last 24 Hours: Laboratory Results - last 24 hr 03/26/17 Range/Units 12:55 Magnesium 5.7 H (1.8-2.5) mg/dL Med Orders - Current: Current Medications Acetaminophen (Tylenol) 650 mg PO Q4H PRN PRN Reason: Pain (Mild 1-3) and fever Carboprost Tromethamine (Hemabate Ds) 250 mcg IM ASDIRECTED PRN PRN Reason: HEMORRHAGE Diphenhydramine HCl (Benadryl) 25 mg IVPUSH Q6H PRN PRN Reason: Itching or Nausea Last Admin: 03/27/17 00:03 Dose: 25 mg Docusate Sodium (Colace) 100 mg PO Q12H PRN PRN Reason: Constipation Last Admin: 08/20/17 08:21 Dose: 100 mg Ephedrine Sulfate (Ephedrine Sulfate) 5 mg IVPUSH SEECOMMENT PRN PRN Reason: Other Ferrous Sulfate (Ferrous Sulfate) 325 mg PO BIDMEALS [facility] Last Admin: 03/27/17 08:21 Dose: 325 mg Oxytocin/Sodium Chloride (Pitocin In Ns 30 Unit/500 Ml) 30 unit in 500 mls @ 2 mls/hr IV TITRATE VICENTE; 2 MUNITS/MIN PRN Reason: Protocol Last Admin: 03/25/17 19:45 Dose: 2 munits/min, 125 mls/hr Lactated Ringer's (Ringers, Lactated) 1,000 mls @ 125 mls/hr IV ASDIRECTED VICENTE Last Admin: 03/26/17 16:18 Dose: 50 mls/hr Ibuprofen (Motrin) 800 mg PO Q8H PRN PRN Reason: mild pain or fever Last Admin: 03/27/17 03:53 Dose: 800 mg Labetalol HCl (Normodyne) 20 mg IV Q6HR PRN; Protocol PRN Reason: Hypertension Last Admin: 03/25/17 17:16 Dose: 20 mg Labetalol HCl (Normodyne) 100 mg PO BID [facility] Methylergonovine Maleate (Methergine) 0.2 mg IM ASDIRECTED PRN PRN Reason: Hemorrhage Misoprostol (Cytotec) 800 mcg RECTAL ASDIRECTED PRN PRN Reason: Hemorrhage Naloxone HCl (Narcan) 0.1 mg IVPUSH SEECOMMENT PRN PRN Reason: Respiratory Depression Ondansetron HCl (Zofran) 4 mg IV Q4H PRN PRN Reason: Nausea/Vomiting Oxycodone/Acetaminophen (Percocet 325-5 Mg) 1 tab PO Q4H PRN PRN Reason: Pain (moderate 4-6) Oxycodone/Acetaminophen (Percocet 325-5 Mg) 2 tab PO Q4H PRN PRN Reason: Pain (moderate 4-6) Last Admin: 03/27/17 08:22 Dose: 2 tab Prenat Multivit/Driving School Instructor/Iron/Folic Ac ( Plus Iron) 1 each PO WITHBREAKFAST [facility] Last Admin: 03/27/17 08:21 Dose: 1 each Simethicone (Simethicone) 80 mg PO Q4H PRN PRN Reason: Gas Last Admin: 03/27/17 08:21 Dose: 80 mg Sodium Chloride (Saline Flush) 10 ml FLUSH ASDIRECTED PRN PRN Reason: Keep Vein Open Discontinued Medications Calcium Gluconate (Calcium Gluconate) 1 gm IVPUSH ONETIME ONE Stop: 03/25/17 21:01 Last Admin: 03/27/17 07:21 Dose: Not Given Calcium Gluconate (Calcium Gluconate) 1 gm IVPUSH ONETIME ONE Stop: 03/25/17 21:46 Last Admin: 03/27/17 07:21 Dose: Not Given Citric Acid/Sodium Citrate (Bicitra Solution) 30 ml PO ONETIME ONE Stop: 03/25/17 17:56 Last Admin: 03/25/17 18:18 Dose: 30 ml Fentanyl (Sublimaze) 50 mcg IVPUSH Q1H PRN PRN Reason: Pain (moderate 4-6) Lactated Ringer's (Ringers, Lactated) 500 mls @ 999 mls/hr IV .BOLUS ONE Stop: 03/25/17 17:08 Last Admin: 03/25/17 20:00 Dose: Not Given Lactated Ringer's (Ringers, Lactated) 1,000 mls @ 125 mls/hr IV ASDIRECTED [facility] Last Admin: 03/25/17 18:19 Dose: 125 mls/hr Cefazolin Sodium/Dextrose 2 gm (/ Premix) 50 mls @ 100 mls/hr IV ONETIME ONE Stop: 03/25/17 18:24 Last Admin: 03/25/17 18:30 Dose: 100 mls/hr Oxytocin/Sodium Chloride (Pitocin In Ns 30 Unit/500 Ml) Confirm Administered Dose 60 unit in 1,000 mls @ as directed .ROUTE .STK-MED ONE Stop: 03/25/17 18:23 Magnesium Sulfate 4 gm/ Premix 100 mls @ 300 mls/hr IV .BOLUS ONE Stop: 03/25/17 20:19 Last Infusion: 03/25/17 21:38 Dose: Infused Magnesium Sulfate (Magnesium Sulfate 20 Gm In Water 500 Ml) 20 gm in 500 mls @ 50 mls/hr IV ASDIRECTED [facility] Stop: 03/26/17 19:00 Last Infusion: 03/26/17 19:23 Dose: 0 mls/hr Ibuprofen (Motrin) 800 mg PO Q8H PRN PRN Reason: mild pain or fever Ketorolac Tromethamine (Toradol) Confirm Administered Dose 30 mg .ROUTE .STK- MED ONE Stop: 03/25/17 18:15 Ketorolac Tromethamine (Toradol) 15 mg IVPUSH Q6H [facility] Stop: 03/26/17 08:01 Last Admin: 03/26/17 00:16 Dose: Not Given Ketorolac Tromethamine (Toradol) 15 mg IVPUSH Q6H [facility] Stop: 03/26/17 14:01 Last Admin: 03/26/17 13:53 Dose: 15 mg Labetalol HCl (Normodyne) 100 mg PO TID [facility] Last Admin: 03/25/17 17:15 Dose: 100 mg Lidocaine HCl (Xylocaine-Mpf 1%) 10 ml INJECT ASDIRECTED PRN PRN Reason: Perineal Repair Midazolam HCl (Versed 1 Mg/Ml) Confirm Administered Dose 2 mg .ROUTE .STK-MED ONE Stop: 03/25/17 18:14 Misoprostol (Cytotec) 25 mcg VAG Q4H PRN PRN Reason: cervical ripening Stop: 03/26/17 20:43 Morphine Sulfate (Duramorph Pf) Confirm Administered Dose 1 mg .ROUTE .STK-MED ONE Stop: 03/25/17 18:15 Nalbuphine HCl (Nubain) 10 mg IVPUSH Q3H PRN PRN Reason: Pain (moderate 4-6) Ondansetron HCl (Zofran) 4 mg IV Q4H PRN PRN Reason: Nausea/Vomiting Ondansetron HCl (Zofran) Confirm Administered Dose 4 mg .ROUTE .STK-MED ONE Stop: 03/25/17 18:15 Oxytocin (Pitocin) 10 unit IM ONETIME ONE Stop: 03/25/17 16:39 Last Admin: 03/25/17 22:00 Dose: Not Given - Infant Interaction Disposition, : in Room with Family Infant Interaction: Holding Infant Infant Feeding: Bottle Fed Support Person: - Recovery Exam Fundal Tone: Firm Fundal Level: 3 Fingerbreadths Below Umbilicus Fundal Placement: Midline Lochia Amount: Scant Lochia Color: Rubra/Red Perineum Description: Intact, Minimal Bruising/Swelling Episiotomy/Laceration: None Bladder Status: Voiding Urinary Elimination: Voided - Exam General: Alert, Oriented HEENT: Pupils Equal, Pupils Reactive Lungs: Clear to Auscultation, Normal Respiratory Effort Cardiovascular: Regular Rate, Regular Rhythm, No Murmurs GI/Abdominal Exam: Soft, Non-Tender Extremities: Pedal Edema (Trace to lower extremities bilaterally) Skin: Warm, Dry, Intact Wound/Incisions: Healing Well - Problem List & Annotations (1) care in third trimester SNOMED Code(s): 594503865, 94529853, 15551516, 935388868, 728478684 Code(s): Z34.93 - ENCNTR FOR SUPRVSN OF NORMAL PREG, UNSP, THIRD TRIMESTER Status: Acute Current Visit: Yes (2) Preeclampsia SNOMED Code(s): 537971209 Code(s): O14.90 - UNSPECIFIED PRE-ECLAMPSIA, UNSPECIFIED TRIMESTER Status: Acute Current Visit: Yes (3) Status post delivery SNOMED Code(s): 881430509 Code(s): Z98.891 - HISTORY OF UTERINE SCAR FROM PREVIOUS SURGERY Status: Acute Current Visit: Yes - Problem List Review Problem List Initiated/Reviewed/Updated: Yes - My Orders Last 24 Hours: My Active Orders 03/26/17 22:00 Ibuprofen [Motrin] 800 mg PO Q8H PRN 03/27/17 11:30 Labetalol [Normodyne] 100 mg PO BID - Assessment Assessment:: 26-year-old, now , POD#2 status post primary section for preeclampsia and non-reassuring heart tones - Plan Plan:: 1. Continue routine postoperative cares 2. Started Labetalol 100 mg BID for elevated BP 3. Patient decided to bottlefeed 4. Anticipate discharge 03/28/17. Miguelina Álvarez MD
[2017-03-27] MEDS: Labetalol 100 MG Tab PO SCH ×2 (11:50→21:04)
[2017-03-28] MEDS: Acetaminophen/oxyCODONE 325-5 MG Tab PO PRN ×4 (06:11→21:50)
[2017-03-28] MEDS: Ibuprofen 800 MG Tab PO PRN ×2 (06:12→16:54)
[2017-03-28] MEDS: Simethicone 80 MG Tab.Chew PO PRN ×2 (06:13→21:50)
[2017-03-28] MEDS: Prenatal Multivitamin with Calcium/Folic Acid/Iron Tab PO SCH (08:57)
[2017-03-28] MEDS: hydrALAZINE 25 MG Tab PO SCH ×3 (08:57→23:44)
[2017-03-28] MEDS: Docusate Sodium 100 MG Cap PO PRN ×2 (08:58→21:51)
[2017-03-28] MEDS: Ferrous Sulfate 325 MG Tab PO SCH ×2 (08:58→18:09)
--- NOTE | 2017-03-28 10:13 | PCM.PNPP ---
- General Info Date of Service: 03/28/17 Subjective Update: 26-year-old, now , day #3 status post primary section for preeclampsia and nonreassuring status. Patient has been feeling well over the past 24 hours. She has had adequate urine output. She is tolerating a general diet. She denies any dizziness, headaches, or abdominal pain. She has had minimal vaginal bleeding. Per nursing, her blood pressures have been gradually climbing over the past 24 hours. This seems to be worsened by any stimulation at all. Patient was started on labetalol 100 mg twice daily yesterday. However, patient states that for about 60-90 minutes after taking the labetalol, she does not feel well. She feels dizzy and lightheaded. She has no other concerns today. Functional Status: Reports: Pain Controlled, Tolerating Diet, Ambulating, New Symptoms (Increased blood pressures) - Review of Systems General: Reports: No Symptoms HEENT: Reports: No Symptoms Pulmonary: Reports: No Symptoms Cardiovascular: Reports: No Symptoms Gastrointestinal: Reports: No Symptoms Genitourinary: Reports: No Symptoms Musculoskeletal: Reports: No Symptoms Skin: Reports: No Symptoms Neurological: Reports: No Symptoms - General Info Date of Service: 03/28/17 - Patient Data Vital Signs - Most Recent: Last Vital Signs Temp 36.2 C 03/28/17 08:00 Pulse 90 03/28/17 08:00 Resp 18 03/28/17 08:00 BP 130/91 H 03/28/17 08:57 Pulse Ox 99 03/28/17 08:00 Weight - Most Recent: 109.316 kg Med Orders - Current: Current Medications Acetaminophen (Tylenol) 650 mg PO Q4H PRN PRN Reason: Pain (Mild 1-3) and fever Carboprost Tromethamine (Hemabate Ds) 250 mcg IM ASDIRECTED PRN PRN Reason: HEMORRHAGE Diphenhydramine HCl (Benadryl) 25 mg IVPUSH Q6H PRN PRN Reason: Itching or Nausea Last Admin: 03/27/17 00:03 Dose: 25 mg Docusate Sodium (Colace) 100 mg PO Q12H PRN PRN Reason: Constipation Last Admin: 03/28/17 08:58 Dose: 100 mg Ephedrine Sulfate (Ephedrine Sulfate) 5 mg IVPUSH SEECOMMENT PRN PRN Reason: Other Ferrous Sulfate (Ferrous Sulfate) 325 mg PO BIDMEALS [facility] Last Admin: 03/28/17 08:58 Dose: 325 mg Hydralazine HCl (Apresoline) 25 mg PO Q8H [facility] Last Admin: 03/28/17 08:57 Dose: 25 mg Oxytocin/Sodium Chloride (Pitocin In Ns 30 Unit/500 Ml) 30 unit in 500 mls @ 2 mls/hr IV TITRATE [facility]; 2 MUNITS/MIN PRN Reason: Protocol Last Admin: 03/25/17 19:45 Dose: 2 munits/min, 125 mls/hr Lactated Ringer's (Ringers, Lactated) 1,000 mls @ 125 mls/hr IV ASDIRECTED [facility] Last Admin: 03/26/17 16:18 Dose: 50 mls/hr Ibuprofen (Motrin) 800 mg PO Q8H PRN PRN Reason: mild pain or fever Last Admin: 03/28/17 06:12 Dose: 800 mg Labetalol HCl (Normodyne) 20 mg IV Q6HR PRN; Protocol PRN Reason: Hypertension Last Admin: 03/25/17 17:16 Dose: 20 mg Methylergonovine Maleate (Methergine) 0.2 mg IM ASDIRECTED PRN PRN Reason: Hemorrhage Misoprostol (Cytotec) 800 mcg RECTAL ASDIRECTED PRN PRN Reason: Hemorrhage Naloxone HCl (Narcan) 0.1 mg IVPUSH SEECOMMENT PRN PRN Reason: Respiratory Depression Ondansetron HCl (Zofran) 4 mg IV Q4H PRN PRN Reason: Nausea/Vomiting Oxycodone/Acetaminophen (Percocet 325-5 Mg) 1 tab PO Q4H PRN PRN Reason: Pain (moderate 4-6) Last Admin: 03/28/17 01:15 Dose: 1 tab Oxycodone/Acetaminophen (Percocet 325-5 Mg) 2 tab PO Q4H PRN PRN Reason: Pain (moderate 4-6) Last Admin: 03/28/17 10:06 Dose: 2 tab Prenat Multivit/[place]/Iron/Folic Ac ( Plus Iron) 1 each PO WITHBREAKFAST [facility] Last Admin: 03/28/17 08:57 Dose: 1 each Simethicone (Simethicone) 80 mg PO Q4H PRN PRN Reason: Gas Last Admin: 03/28/17 06:13 Dose: 80 mg Sodium Chloride (Saline Flush) 10 ml FLUSH ASDIRECTED PRN PRN Reason: Keep Vein Open Discontinued Medications Calcium Gluconate (Calcium Gluconate) 1 gm IVPUSH ONETIME ONE Stop: 03/25/17 21:01 Last Admin: 03/27/17 07:21 Dose: Not Given Calcium Gluconate (Calcium Gluconate) 1 gm IVPUSH ONETIME ONE Stop: 03/25/17 21:46 Last Admin: 03/27/17 07:21 Dose: Not Given Citric Acid/Sodium Citrate (Bicitra Solution) 30 ml PO ONETIME ONE Stop: 03/25/17 17:56 Last Admin: 03/25/17 18:18 Dose: 30 ml Fentanyl (Sublimaze) 50 mcg IVPUSH Q1H PRN PRN Reason: Pain (moderate 4-6) Lactated Ringer's (Ringers, Lactated) 500 mls @ 999 mls/hr IV .BOLUS ONE Stop: 03/25/17 17:08 Last Admin: 03/25/17 20:00 Dose: Not Given Lactated Ringer's (Ringers, Lactated) 1,000 mls @ 125 mls/hr IV ASDIRECTED [facility] Last Admin: 03/25/17 18:19 Dose: 125 mls/hr Cefazolin Sodium/Dextrose 2 gm (/ Premix) 50 mls @ 100 mls/hr IV ONETIME ONE Stop: 03/25/17 18:24 Last Admin: 03/25/17 18:30 Dose: 100 mls/hr Oxytocin/Sodium Chloride (Pitocin In Ns 30 Unit/500 Ml) Confirm Administered Dose 60 unit in 1,000 mls @ as directed .ROUTE .STK-MED ONE Stop: 03/25/17 18:23 Magnesium Sulfate 4 gm/ Premix 100 mls @ 300 mls/hr IV .BOLUS ONE Stop: 03/25/17 20:19 Last Infusion: 03/25/17 21:38 Dose: Infused Magnesium Sulfate (Magnesium Sulfate 20 Gm In Water 500 Ml) 20 gm in 500 mls @ 50 mls/hr IV ASDIRECTED [facility] Stop: 03/26/17 19:00 Last Infusion: 03/26/17 19:23 Dose: 0 mls/hr Ibuprofen (Motrin) 800 mg PO Q8H PRN PRN Reason: mild pain or fever Ketorolac Tromethamine (Toradol) Confirm Administered Dose 30 mg .ROUTE .STK- MED ONE Stop: 03/25/17 18:15 Ketorolac Tromethamine (Toradol) 15 mg IVPUSH Q6H [facility] Stop: 03/26/17 08:01 Last Admin: 03/26/17 00:16 Dose: Not Given Ketorolac Tromethamine (Toradol) 15 mg IVPUSH Q6H [facility] Stop: 03/26/17 14:01 Last Admin: 03/26/17 13:53 Dose: 15 mg Labetalol HCl (Normodyne) 100 mg PO TID [facility] Last Admin: 03/25/17 17:15 Dose: 100 mg Labetalol HCl (Normodyne) 100 mg PO BID [facility] Last Admin: 03/27/17 21:04 Dose: 100 mg Lidocaine HCl (Xylocaine-Mpf 1%) 10 ml INJECT ASDIRECTED PRN PRN Reason: Perineal Repair Midazolam HCl (Versed 1 Mg/Ml) Confirm Administered Dose 2 mg .ROUTE .STK-MED ONE Stop: 03/25/17 18:14 Misoprostol (Cytotec) 25 mcg VAG Q4H PRN PRN Reason: cervical ripening Stop: 03/26/17 20:43 Morphine Sulfate (Duramorph Pf) Confirm Administered Dose 1 mg .ROUTE .STK-MED ONE Stop: 03/25/17 18:15 Nalbuphine HCl (Nubain) 10 mg IVPUSH Q3H PRN PRN Reason: Pain (moderate 4-6) Ondansetron HCl (Zofran) 4 mg IV Q4H PRN PRN Reason: Nausea/Vomiting Ondansetron HCl (Zofran) Confirm Administered Dose 4 mg .ROUTE .STK-MED ONE Stop: 03/25/17 18:15 Oxytocin (Pitocin) 10 unit IM ONETIME ONE Stop: 03/25/17 16:39 Last Admin: 03/25/17 22:00 Dose: Not Given - Infant Interaction Disposition, : to Nursery Infant Interaction: Not Interacting Infant Feeding: Bottle Fed Infant Support Person: - Recovery Exam Fundal Tone: Firm Fundal Level: 3 Fingerbreadths Below Umbilicus Fundal Placement: Midline Lochia Amount: Scant Lochia Color: Rubra/Red Perineum Description: Intact, Minimal Bruising/Swelling Episiotomy/Laceration: None Bladder Status: Voiding Urinary Elimination: Voided - Exam General: Alert, Oriented HEENT: Pupils Equal, Pupils Reactive Lungs: Clear to Auscultation, Normal Respiratory Effort Cardiovascular: Regular Rate, Regular Rhythm, No Murmurs GI/Abdominal Exam: Normal Bowel Sounds Extremities: Normal Inspection, Pedal Edema (Trace bilaterally) Skin: Warm, Dry, Intact Wound/Incisions: Healing Well, No Drainage. No: Erythema - Problem List & Annotations (1) care in third trimester SNOMED Code(s): 126122372, 73964753, 21724054, 936009140, 067472712 Code(s): Z34.93 - ENCNTR FOR SUPRVSN OF NORMAL PREG, UNSP, THIRD TRIMESTER Status: Acute Current Visit: Yes (2) Preeclampsia SNOMED Code(s): 256225845 Code(s): O14.90 - UNSPECIFIED PRE-ECLAMPSIA, UNSPECIFIED TRIMESTER Status: Acute Current Visit: Yes (3) Status post delivery SNOMED Code(s): 175984193 Code(s): Z98.891 - HISTORY OF UTERINE SCAR FROM PREVIOUS SURGERY Status: Acute Current Visit: Yes - Problem List Review Problem List Initiated/Reviewed/Updated: Yes - My Orders Last 24 Hours: My Active Orders 03/28/17 08:00 hydrALAZINE [Apresoline] 25 mg PO Q8H - Assessment Assessment:: 26-year-old, now , POD#3 status post primary section for preeclampsia and non-reassuring heart tones - Plan Plan:: 1. Continue routine postoperative cares 2. As patient is not tolerating labetalol well and has persistent elevated blood pressures, advised her that I did not think it was safe to discharge her today. Labetalol was discontinued and hydralazine 25 mg every 8 hours was started. Continue to monitor blood pressures closely. 3. Patient decided to bottlefeed 4. Anticipate discharge 03/29/17 if her blood pressures are normalized. Miguelina Álvarez MD
[2017-03-28] MEDS ORDERED: Ketorolac 30 MG/ML SDV IVPUSH ONE (12:22)
[2017-03-28] MEDS ORDERED: Morphine PF 1 MG/ML Amp ONE (12:22)
[2017-03-28] MEDS ORDERED: ePHEDrine 50 MG/ML SDV IV ONE (12:22)
[2017-03-28] MEDS ORDERED: Ondansetron 4 MG/2 ML SDV IV ONE (12:22)
[2017-03-28] MEDS ORDERED: Oxytocin/Normal Saline 30 UNIT/500 ML BAG IV ONE (16:41)
[2017-03-29] MEDS: Ibuprofen 800 MG Tab PO PRN (03:59)
[2017-03-29] MEDS: Acetaminophen/oxyCODONE 325-5 MG Tab PO PRN ×2 (04:00→08:20)
[2017-03-29] MEDS: Prenatal Multivitamin with Calcium/Folic Acid/Iron Tab PO SCH (08:19)
[2017-03-29] MEDS: Simethicone 80 MG Tab.Chew PO PRN (08:19)
[2017-03-29] MEDS: Docusate Sodium 100 MG Cap PO PRN (08:19)
[2017-03-29] MEDS: Ferrous Sulfate 325 MG Tab PO SCH (08:19)
[2017-03-29] MEDS: hydrALAZINE 25 MG Tab PO SCH (08:20)
[2017-03-29 12:27] VITALS: BP 141/87
--- NOTE | 2017-03-29 13:51 | PCM.DCSUM1 ---
Discharge Summary - Hospital Course Free Text/Narrative:: 26-year-old now postoperative day #4 status post primary section for preeclampsia and nonreassuring status at 39w0d - Discharge Data Discharge Date: 03/29/17 Discharge Disposition: Home, Self-Care 01 Condition: Good - Discharge Diagnosis/Problem(s) (1) care in third trimester SNOMED Code(s): 578894575, 48104123, 81198579, 726236362, 222272812 ICD Code: Z34.93 - ENCNTR FOR SUPRVSN OF NORMAL PREG, UNSP, THIRD TRIMESTER Status: Acute (2) Preeclampsia SNOMED Code(s): 371753368 ICD Code: O14.90 - UNSPECIFIED PRE-ECLAMPSIA, UNSPECIFIED TRIMESTER Status : Acute (3) Status post delivery SNOMED Code(s): 414567333 ICD Code: Z98.891 - HISTORY OF UTERINE SCAR FROM PREVIOUS SURGERY Status: Acute - Patient Summary/Data Operative Procedure(s) Performed: primary low transverse section Complications: none Consults: Consultations 03/25/17 19:57 Consult to [facility] [CONS] Routine Labs Pending at D/C: none Recommended Follow-up Testing/Procedures: repeat blood pressure in 48 hours Planned Operative Procedure(s) after DC: none - Patient Instructions Diet: Usual Diet as Tolerated Activity: No Lifting Over 20 Pounds, No Strenuous Activities, Rest and Relax Today Driving: Do Not Drive Showering/Bathing: May Shower Wound/Incision Care: Keep Operative Site/Wound Site Clean and Dry Notify Provider of: Fever, Increased Pain, Swelling and Redness, Drainage, Nausea and/or Vomiting - Discharge Plan Home Medications: Home Meds PNV95/Ferrous Fumarate/FA [ Tablet] 1 tab PO DAILY 03/25/17 [History] Acetaminophen [Tylenol] 650 mg PO Q4H PRN #0 tablet 03/29/17 [Rx] Acetaminophen/oxyCODONE [Percocet 325-5 MG] 2 tab PO Q4H PRN #0 tablet 03/29/17 [Rx] Docusate Sodium [Colace] 100 mg PO Q12H PRN #0 cap 03/29/17 [Rx] Ibuprofen [IJD: Ibuprofen] 800 mg PO Q8H PRN #0 tablet 03/29/17 [Rx] hydrALAZINE [Apresoline] 50 mg PO Q8H tablet 03/29/17 [Rx] Patient Handouts: Delivery, Care After, Hypertension, Home Care Instructions for Mom Referrals: Miguelina Álvarez MD [Primary Care Provider] - (Will need to schedule 6 week post- follow-up appt.) - Discharge Summary/Plan Comment DC Time >30 min.: No Discharge Summary/Plan Comment: patient discharged home today. Hydralazine increased to 50 mg 3 times per day. Patient will have repeat blood pressure check in the clinic on 03/31/2017. Patient advised to contact the clinic or OB floor if she develops headache, vision changes, or any other concerning symptoms. Other reasons to return sooner were discussed with the patient, and she voiced her understanding. Miguelina Álvarez MD - General Info Date of Service: 03/29/17 Admission Dx/Problem (Free Text: Patient Status Order with Admit Dx/Problem 03/25/17 16:39 Patient Status [ADT] Routine Admission Diagnosis/Problem Admission Diagnosis/Problem High risk Subjective Update: 26-year-old, now , day #4 status post primary section for preeclampsia and nonreassuring status. Patient has been feeling well over the past 24 hours. She has had adequate urine output. She is tolerating a general diet. She denies any dizziness, headaches, or abdominal pain. She has had minimal vaginal bleeding. patient's blood pressures have been improved over the past 24 hours but still are at times elevated with a systolic as high as 150 and a diastolic as high as 90. She is tolerating 25 mg hydralazine 3 times daily without any side effects. She has no other concerns today and hopes to be discharged. Functional Status: Reports: Pain Controlled, Tolerating Diet, Ambulating, Urinating. Denies: New Symptoms - Review of Systems General: Reports: No Symptoms HEENT: Reports: No Symptoms Pulmonary: Reports: No Symptoms Cardiovascular: Reports: No Symptoms Gastrointestinal: Reports: No Symptoms Genitourinary: Reports: No Symptoms Musculoskeletal: Reports: No Symptoms Skin: Reports: No Symptoms Neurological: Reports: No Symptoms - Patient Data Vitals - Most Recent: Last Vital Signs Temp 36.9 C 03/29/17 08:00 Pulse 98 03/29/17 12:00 Resp 16 03/29/17 08:00 BP 141/87 H 03/29/17 12:00 Pulse Ox 100 03/29/17 08:00 Weight - Most Recent: 109.316 kg Med Orders - Current: Current Medications Discontinued Medications Acetaminophen (Tylenol) 650 mg PO Q4H PRN PRN Reason: Pain (Mild 1-3) and fever Calcium Gluconate (Calcium Gluconate) 1 gm IVPUSH ONETIME ONE Stop: 03/25/17 21:01 Last Admin: 03/27/17 07:21 Dose: Not Given Calcium Gluconate (Calcium Gluconate) 1 gm IVPUSH ONETIME ONE Stop: 03/25/17 21:46 Last Admin: 03/27/17 07:21 Dose: Not Given Carboprost Tromethamine (Hemabate Ds) 250 mcg IM ASDIRECTED PRN PRN Reason: HEMORRHAGE Citric Acid/Sodium Citrate (Bicitra Solution) 30 ml PO ONETIME ONE Stop: 03/25/17 17:56 Last Admin: 03/25/17 18:18 Dose: 30 ml Diphenhydramine HCl (Benadryl) 25 mg IVPUSH Q6H PRN PRN Reason: Itching or Nausea Last Admin: 03/27/17 00:03 Dose: 25 mg Docusate Sodium (Colace) 100 mg PO Q12H PRN PRN Reason: Constipation Last Admin: 03/29/17 08:19 Dose: 100 mg Ephedrine Sulfate (Ephedrine Sulfate) 5 mg IVPUSH SEECOMMENT PRN PRN Reason: Other Ephedrine Sulfate (Ephedrine Sulfate) 10 mg IV .STK-MED ONE Stop: 03/28/17 12:23 Fentanyl (Sublimaze) 50 mcg IVPUSH Q1H PRN PRN Reason: Pain (moderate 4-6) Ferrous Sulfate (Ferrous Sulfate) 325 mg PO BIDMEALS [facility] Last Admin: 03/29/17 08:19 Dose: 325 mg Hydralazine HCl (Apresoline) 25 mg PO Q8H [facility] Last Admin: 03/29/17 08:20 Dose: 25 mg Lactated Ringer's (Ringers, Lactated) 500 mls @ 999 mls/hr IV .BOLUS ONE Stop: 03/25/17 17:08 Last Admin: 03/25/17 20:00 Dose: Not Given Lactated Ringer's (Ringers, Lactated) 1,000 mls @ 125 mls/hr IV ASDIRECTED [facility] Last Admin: 03/25/17 18:19 Dose: 125 mls/hr Oxytocin/Sodium Chloride (Pitocin In Ns 30 Unit/500 Ml) 30 unit in 500 mls @ 2 mls/hr IV TITRATE [facility]; 2 MUNITS/MIN PRN Reason: Protocol Last Admin: 03/25/17 19:45 Dose: 2 munits/min, 125 mls/hr Cefazolin Sodium/Dextrose 2 gm (/ Premix) 50 mls @ 100 mls/hr IV ONETIME ONE Stop: 03/25/17 18:24 Last Admin: 03/25/17 18:30 Dose: 100 mls/hr Oxytocin/Sodium Chloride (Pitocin In Ns 30 Unit/500 Ml) Confirm Administered Dose 60 unit in 1,000 mls @ as directed .ROUTE .STK-MED ONE Stop: 03/25/17 18:23 Lactated Ringer's (Ringers, Lactated) 1,000 mls @ 125 mls/hr IV ASDIRECTED [facility] Last Admin: 03/26/17 16:18 Dose: 50 mls/hr Magnesium Sulfate 4 gm/ Premix 100 mls @ 300 mls/hr IV .BOLUS ONE Stop: 03/25/17 20:19 Last Infusion: 03/25/17 21:38 Dose: Infused Magnesium Sulfate (Magnesium Sulfate 20 Gm In Water 500 Ml) 20 gm in 500 mls @ 50 mls/hr IV ASDIRECTED [facility] Stop: 03/26/17 19:00 Last Infusion: 03/26/17 19:23 Dose: 0 mls/hr Oxytocin/Sodium Chloride (Pitocin In Ns 30 Unit/500 Ml) 30 unit in 500 mls @ as directed IV .STK-MED ONE Stop: 03/28/17 16:42 Ibuprofen (Motrin) 800 mg PO Q8H PRN PRN Reason: mild pain or fever Ibuprofen (Motrin) 800 mg PO Q8H PRN PRN Reason: mild pain or fever Last Admin: 03/29/17 03:59 Dose: 800 mg Ketorolac Tromethamine (Toradol) Confirm Administered Dose 30 mg .ROUTE .STK- MED ONE Stop: 03/25/17 18:15 Ketorolac Tromethamine (Toradol) 15 mg IVPUSH Q6H [facility] Stop: 03/26/17 08:01 Last Admin: 03/26/17 00:16 Dose: Not Given Ketorolac Tromethamine (Toradol) 15 mg IVPUSH Q6H [facility] Stop: 03/26/17 14:01 Last Admin: 03/26/17 13:53 Dose: 15 mg Ketorolac Tromethamine (Toradol) 30 mg IVPUSH .STK-MED ONE Stop: 03/28/17 12:23 Labetalol HCl (Normodyne) 20 mg IV Q6HR PRN; Protocol PRN Reason: Hypertension Last Admin: 03/25/17 17:16 Dose: 20 mg Labetalol HCl (Normodyne) 100 mg PO TID [facility] Last Admin: 03/25/17 17:15 Dose: 100 mg Labetalol HCl (Normodyne) 100 mg PO BID [facility] Last Admin: 03/27/17 21:04 Dose: 100 mg Lidocaine HCl (Xylocaine-Mpf 1%) 10 ml INJECT ASDIRECTED PRN PRN Reason: Perineal Repair Methylergonovine Maleate (Methergine) 0.2 mg IM ASDIRECTED PRN PRN Reason: Hemorrhage Midazolam HCl (Versed 1 Mg/Ml) Confirm Administered Dose 2 mg .ROUTE .STK-MED ONE Stop: 03/25/17 18:14 Misoprostol (Cytotec) 800 mcg RECTAL ASDIRECTED PRN PRN Reason: Hemorrhage Misoprostol (Cytotec) 25 mcg VAG Q4H PRN PRN Reason: cervical ripening Stop: 03/26/17 20:43 Morphine Sulfate (Duramorph Pf) Confirm Administered Dose 1 mg .ROUTE .STK-MED ONE Stop: 03/25/17 18:15 Morphine Sulfate (Duramorph Pf) 0.25 mg .XX .STK-MED ONE Stop: 03/28/17 12:23 Nalbuphine HCl (Nubain) 10 mg IVPUSH Q3H PRN PRN Reason: Pain (moderate 4-6) Naloxone HCl (Narcan) 0.1 mg IVPUSH SEECOMMENT PRN PRN Reason: Respiratory Depression Ondansetron HCl (Zofran) 4 mg IV Q4H PRN PRN Reason: Nausea/Vomiting Ondansetron HCl (Zofran) Confirm Administered Dose 4 mg .ROUTE .STK-MED ONE Stop: 03/25/17 18:15 Ondansetron HCl (Zofran) 4 mg IV Q4H PRN PRN Reason: Nausea/Vomiting Ondansetron HCl (Zofran) 4 mg IV .STK-MED ONE Stop: 03/28/17 12:23 Oxycodone/Acetaminophen (Percocet 325-5 Mg) 1 tab PO Q4H PRN PRN Reason: Pain (moderate 4-6) Last Admin: 03/28/17 01:15 Dose: 1 tab Oxycodone/Acetaminophen (Percocet 325-5 Mg) 2 tab PO Q4H PRN PRN Reason: Pain (moderate 4-6) Last Admin: 03/29/17 08:20 Dose: 2 tab Oxytocin (Pitocin) 10 unit IM ONETIME ONE Stop: 03/25/17 16:39 Last Admin: 03/25/17 22:00 Dose: Not Given Prenat Multivit/[place]/Iron/Folic Ac ( Plus Iron) 1 each PO WITHBREAKFAST [facility] Last Admin: 03/29/17 08:19 Dose: 1 each Simethicone (Simethicone) 80 mg PO Q4H PRN PRN Reason: Gas Last Admin: 03/29/17 08:19 Dose: 80 mg Sodium Chloride (Saline Flush) 10 ml FLUSH ASDIRECTED PRN PRN Reason: Keep Vein Open - Exam General: Reports: Alert, Oriented HEENT: Reports: Pupils Equal, Pupils Reactive Cardiovascular: Reports: Regular Rate, Regular Rhythm, No Murmurs GI/Abdominal Exam: Soft, Non-Tender Extremities: Normal Inspection, Normal Range of Motion, Pedal Edema (trace bilaterally) Skin: Reports: Warm, Dry, Intact Wound/Incisions: Reports: Healing Well, No Drainage. Denies: Erythema *Q Meaningful Use (DIS) - VTE *Q VTE Criteria *Q: - Stroke *Q Stroke Criteria *Q: - AMI *Q AMI Criteria *Q:
== END 2017-03-29 12:35 | disposition home or self-care (01) | DRG 540 ==
LOC: DL.OBCHECK 16:25 → DL.OB 16:48 → OBSVTOIN 19:00 → DL.OB 19:00
PROVIDERS: ADMIT Family Medicine; ATTEND Family Medicine
PROC: 10D00Z1 Extraction of Products of Conception, Low, Open Approach (ICD-10-PCS; principal; 2017-03-25)
PROC: 4A1HXCZ Monitoring of Products of Conception, Cardiac Rate, External Approach (ICD-10-PCS; 2017-03-25)
DX: O14.94 Unspecified pre-eclampsia, complicating childbirth (principal); O76 Abnormality in fetal heart rate and rhythm complicating labor and delivery; Z3A.39 39 weeks gestation of pregnancy; Z37.0 Single live birth
CPT/HCPCS: 36415; 81003; 82565; 82570; 83615; 83735; 84156; 84450; 84460; 84520; 84550; 85025; 85027; 86850; 86900; 86901; A9270-GY; J0690; J1200; J1885; J2274; J2405; J2590; J3475; J7120

== ENCOUNTER 2017-05-30 16:47 | Emergency (ER) | payer BC, SELFPAY ==
[2017-05-30 17:01] VITALS: BP 159/105
[2017-05-30] MEDS ORDERED: Bacitracin Oint 1 GM U/D Packet TOP ONE (17:15)
[2017-05-30] MEDS ORDERED: Lidocaine 1% 30 ML SDV INJECT ONE (17:15)
--- NOTE | 2017-05-30 19:00 | EDM.PDOC ---
ED HPI GENERAL MEDICAL PROBLEM - General Chief Complaint: Laceration Stated Complaint: LACERATION ON ARM, [id number] Time Seen by Provider: 05/30/17 17:00 Source of Information: Reports: Patient, Family, RN, RN Notes Reviewed History Limitations: Reports: No Limitations - History of Present Illness INITIAL COMMENTS - FREE TEXT/NARRATIVE: Patient presents to the ER with c/o a fall at home. She states she dropped her 2 month old infant after tripping over a dog. She states she caught her arm on a metal sign in the home. She is bleeding and quite tearful and concerned about her infant. She states she last had her tetanus vaccination during a few months ago. Pt states she can wiggle her fingers and has feeling in her fingers. Onset: Today, Sudden Left Arm Pain Score (Numeric/FACES): 5 - Related Data Allergies Allergy/AdvReac Type Severity Reaction Status Date / Time Penicillins Allergy Hives Verified 05/30/17 16:58 Home Meds: Home Meds NK [No Known Home Meds] 0 mg PO DAILY 05/30/17 [History] Past Medical History - Past Health History Medical/Surgical History: Denies Medical/Surgical History Cardiovascular History: Reports: Hypertension Other Cardiovascular History: Gestational HTN [employer] History: Reports: Social & Family History - Family History Family Medical History: Noncontributory Cardiac: Reports: CAD OBGYN: Reports: Other (See Below) - Tobacco Use Smoking Status *Q: Never Smoker Second Hand Smoke Exposure: No - Caffeine Use Caffeine Use: Reports: Soda - Recreational Drug Use Recreational Drug Use: No ED ROS GENERAL - Review of Systems Review Of Systems: ROS reveals no pertinent complaints other than HPI. ED EXAM, SKIN/RASH Exam: See Below Exam Limited By: No Limitations General Appearance: Alert, WD/WN, Anxious, Other (Mom very concerned about her infant. ) Eye Exam: Bilateral Eye: Normal Inspection Ears: Normal External Exam Nose: Normal Inspection Throat/Mouth: Normal Inspection, Normal Lips, Normal Voice, No Airway Compromise Head: Atraumatic, Normocephalic Neck: Normal Inspection, Supple, Non-Tender, Full Range of Motion Respiratory/Chest: No Respiratory Distress, Lungs Clear, Normal Breath Sounds, No Accessory Muscle Use, Chest Non-Tender Cardiovascular: Normal Peripheral Pulses, Regular Rate, Rhythm, No Edema, No Gallop, No JVD, No Murmur, No Rub Peripheral Pulses: 2+: Radial (L), Radial (R) GI/Abdominal: Normal Bowel Sounds, Soft, Non-Tender (Female) Exam: Deferred Rectal (Female) Exam: Deferred Back Exam: Normal Inspection, Full Range of Motion Extremities: Normal Inspection, Normal Range of Motion, Non-Tender, No Pedal Edema Neurological: Alert, Oriented, Normal Cognition, Normal Gait, No Motor/Sensory Deficits Psychiatric: Normal Affect, Anxious, Tearful Skin: Warm, Dry, Normal Color, Other (laceration to the left upper medial arm, as well as left medial forearm) Location, Skin: Upper Extremity, Left Lymphatic: No Adenopathy ED SKIN PROCEDURES - Laceration/Wound Repair Left Middle Medial Arm Lac/Wound length In cm: 6 (L shaped (4cm x 2 cm), Upper medial arm 2cm) Appearance: Subcutaneous, Irregular, Clean Distal NVT: Neuro & Vascular Intact, No Tendon Injury Anesthetic Type: Local Local Anesthesia - Lidocaine (Xylocaine): 1% Plain Local Anesthetic Volume: Other (16cc) Skin Prep: Chlorhexidine (Hibiciens) Exploration/Debridement/Repair: Wound Explored, In a Bloodless Field, Explored to Base, No Foreign Material Found Closed with: Sutures Suture Size: 4-0 # of Sutures: 18 (16 placed in the proximal forearm, 2 placed in medial upper arm) Suture Type: Nylon, Interrupted Course - Vital Signs Last Recorded V/S: Last Vital Signs Temp 98.4 F 05/30/17 16:59 Pulse 96 05/30/17 16:59 Resp 16 05/30/17 16:59 BP 159/105 H 05/30/17 16:59 Pulse Ox 100 05/30/17 16:59 - Orders/Labs/Meds Meds: Medications Discontinued Medications Generic Name Dose Route Start Last Admin Trade Name Kailee PRN Reason Stop Dose Admin Bacitracin 1 dose 05/30/17 17:15 05/30/17 18:49 Bacitracin Oint 1 Gm TOP 05/30/17 17:16 1 dose ONETIME ONE Administration Lidocaine HCl 30 ml 05/30/17 17:15 05/30/17 18:49 Xylocaine-Mpf 1% INJECT 05/30/17 17:16 16 ml ONETIME ONE Administration Departure - Departure Time of Disposition: 18:56 Disposition: Home, Self-Care 01 Condition: Good Clinical Impression: Laceration Contusion Qualifiers: Encounter type: initial encounter Contusion area: forearm Laterality: left Qualified Code(s): S50.12XA - Contusion of left forearm, initial encounter - Discharge Information Instructions: Contusion, [id number], Laceration Care, Adult, [id number], Stitches, [place], or Adhesive Wound Closure, [id number], Abrasion, Easy-to- Read Forms: ED Department Discharge Additional Instructions: Stitches can be taken out in the clinic in 10 days. Keep wounds clean and dry for 24 hours, after that, avoid scrubbing the area. Follow up with your primary care facility.
== END 2017-05-30 19:10 | disposition home or self-care (01) ==
LOC: DL.ED 16:47
DX: S51.812A Laceration without foreign body of left forearm, initial encounter (principal); W01.0XXA Fall on same level from slipping, tripping and stumbling without subsequent striking against object, initial encounter; Z88.0 Allergy status to penicillin
CPT/HCPCS: 12002; 99282

== ENCOUNTER 2019-08-06 00:04 | Emergency (ER) | payer BC ==
[2019-08-06 00:14] VITALS: PULSE 110
[2019-08-06] MEDS ORDERED: Ibuprofen 600 MG Tab PO ONE (00:15)
[2019-08-06] MEDS ORDERED: cloNIDine 0.1 MG Tab PO ONE ×2 (00:15→00:55)
--- NOTE | 2019-08-06 00:17 | EDM.PDOC ---
ED HPI GENERAL MEDICAL PROBLEM - General Chief Complaint: ENT Problem Stated Complaint: SORE THROAT Time Seen by Provider: 08/06/19 00:15 Source of Information: Reports: Patient History Limitations: Reports: No Limitations - History of Present Illness INITIAL COMMENTS - FREE TEXT/NARRATIVE: sore throat since yesterday. had gestational HTN. on no BP Rx. denies CP/SOB/ AKBAR. only sore throat. 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 ED EXAM, ENT - Physical Exam Exam: See Below Exam Limited By: No Limitations General Appearance: Alert, WD/WN, Mild Distress, Other (discomfort) Ears: Hearing Grossly Normal Mouth/Throat: Pharyngeal Erythema, Tonsillar Erythema, Tonsillar Swelling Head: Atraumatic Neck: Supple, Non-Tender Respiratory/Chest: No Respiratory Distress Cardiovascular: Regular Rate, Rhythm GI/Abdominal: Soft, Non-Tender Neurological: Alert, Oriented, Normal Cognition, Normal Gait, No Motor/Sensory Deficits Psychiatric: Flat Affect Skin: Warm, Dry, Normal Color Lymphatic: No Adenopathy Course - Vital Signs Last Recorded V/S: Last Vital Signs Temp 36.6 C 08/06/19 00:10 Pulse 110 H 08/06/19 00:10 Resp 14 08/06/19 00:10 BP 152/100 H 08/06/19 00:59 Pulse Ox 97 08/06/19 00:10 - Orders/Labs/Meds Orders: Active Orders 24 hr Category Date Time Status CULTURE STREP A CONFIRMATION [RM] Stat Lab 08/06/19 00:05 Results STREP SCRN A RAPID W CULT CONF [RM] Stat Lab 08/06/19 00:05 Results Meds: Medications Discontinued Medications Generic Name Dose Route Start Last Admin Trade Name Kailee PRN Reason Stop Dose Admin Azithromycin 500 mg 08/06/19 00:55 08/06/19 00:59 Zithromax PO 08/06/19 00:56 500 mg ONETIME ONE Administration Clonidine HCl 0.1 mg 08/06/19 00:15 08/06/19 00:19 Catapres PO 08/06/19 00:16 0.1 mg ONETIME ONE Administration Clonidine HCl 0.1 mg 08/06/19 00:55 08/06/19 00:59 Catapres PO 08/06/19 00:56 0.1 mg ONETIME ONE Administration Ibuprofen 600 mg 08/06/19 00:15 08/06/19 00:19 Motrin PO 08/06/19 00:16 600 mg ONETIME ONE Administration - Re-Assessments/Exams Free Text/Narrative Re-Assessment/Exam: 08/06/19 00:56 results discussed with pt. 08/06/19 01:20 re-exam; BP lower 120/84 Departure - Departure Time of Disposition: 01:20 Disposition: Home, Self-Care 01 Condition: Good Clinical Impression: Tonsillopharyngitis Hypertension Qualifiers: Hypertension type: unspecified secondary hypertension Qualified Code(s): I15.9 - Secondary hypertension, unspecified; I15 - Secondary hypertension - Discharge Information Instructions: Tonsillitis, [id number] Forms: ED Department Discharge Additional Instructions: 1) rest 2) avoid solid foods 3) see clinic tomorrow for BP management rx given; z-valeria Sepsis Event Note - Evaluation Sepsis Screening Result: No Definite Risk - Focused Exam Vital Signs: Vital Signs Temp Pulse Resp BP BP Pulse Ox 08/06/19 00:59 152/100 H 08/06/19 00:19 148/101 H 08/06/19 00:10 36.6 C 110 H 14 150/103 H 97 Date Exam was Performed: 08/06/19 Time Exam was Performed: 01:20 - My Orders Last 24 Hours: My Active Orders 08/06/19 00:05 CULTURE STREP A CONFIRMATION [RM] Stat STREP SCRN A RAPID W CULT CONF [RM] Stat - Assessment/Plan Last 24 Hours: My Active Orders 08/06/19 00:05 CULTURE STREP A CONFIRMATION [RM] Stat STREP SCRN A RAPID W CULT CONF [RM] Stat
[2019-08-06] MEDS ORDERED: Azithromycin 250 MG Tab PO ONE (00:55)
[2019-08-06 01:00] VITALS: BP 152/100
== END 2019-08-06 01:22 | disposition home or self-care (01) ==
LOC: DL.ED 00:04
DX: J03.90 Acute tonsillitis, unspecified (principal); I15.9 Secondary hypertension, unspecified; Z88.0 Allergy status to penicillin
CPT/HCPCS: 87081; 87430; 99283; A9270